=== PATIENT | male | born 1945 | race Caucasian/White ===

== ENCOUNTER 2017-03-07 06:51 | Day surgery (SDC) | payer MEDICARE, BC ==
[~2017-03-07] VITALS: Ht 170.2 cm; Wt 63.9 kg
[2017-03-07 08:12] VITALS: BP 116/73; PULSE 55; TEMP 97.5
[2017-03-07] MEDS ORDERED: TURMERIC500 MG PO (08:23)
[2017-03-07] MEDS ORDERED: SALINE 45 ML45 ML NS (08:24)
[2017-03-07] MEDS ORDERED: NORCO 325 MG-7.1 TAB PO (11:25)
[2017-03-07 11:28] VITALS: BP 99/61; PULSE 65; TEMP 97.2
[2017-03-07 11:45] VITALS: BP 130/77; PULSE 54
[2017-03-07 12:00] VITALS: BP 124/77; PULSE 64
[2017-03-07 12:15] VITALS: BP 132/74; PULSE 49
[2017-03-07 12:30] VITALS: BP 132/75; PULSE 53
== END 2017-03-07 13:10 | disposition home or self-care (01) ==
LOC: SDCO 06:51
DX: K21.9 Gastro-esophageal reflux disease without esophagitis (principal); I49.9 Cardiac arrhythmia, unspecified; Z80.9 Family history of malignant neoplasm, unspecified; M54.5 Low back pain
CPT/HCPCS: C1781; J0690; J2704; J3010; J7120